=== PATIENT | female | born 1970 | race Two or more races ===

== ENCOUNTER 2019-02-07 10:14 | Emergency (ER) | payer OTHER ==
[~2019-02-07] VITALS: Ht 175.3 cm; Wt 88.5 kg
[2019-02-07] MEDS ORDERED: SINGULAIR10 MG (10:38)
== END 2019-02-07 15:35 | disposition home or self-care (01) ==
LOC: ER 10:14
DX: K52.9 Noninfective gastroenteritis and colitis, unspecified (principal); K64.4 Residual hemorrhoidal skin tags

== ENCOUNTER → 2019-02-25 | Day surgery (SDC) | payer OTHER ==
[~2019-02-25] MED LIST: FLONASE16 GM; SINGULAIR10 MG
== END | disposition home or self-care (01) ==
LOC: CIR.AMB 06:45
DX: K64.8 Other hemorrhoids (principal); K64.4 Residual hemorrhoidal skin tags

== ENCOUNTER 2022-02-15 13:37 | Emergency (ER) | payer OTHER ==
[~2022-02-15] VITALS: Ht 175.3 cm; Wt 88.5 kg
== END 2022-02-15 17:50 | disposition home or self-care (01) ==
LOC: ER 13:37
DX: F41.9 Anxiety disorder, unspecified (principal); R07.9 Chest pain, unspecified

== ENCOUNTER 2025-01-19 10:00 | Emergency (ER) | payer OTHER ==
[~2025-01-19] VITALS: Ht 175.3 cm; Wt 87.1 kg
[2025-01-19] MEDS ORDERED: FAMOTIDINE/PF 20 MG in 0.9 % SODIUM CHLORIDE 8 ML IV PUSH STA (10:39)
[2025-01-19] MEDS ORDERED: ASPIRIN 325 MG TABLET PO ONE (10:45)
[2025-01-19] MEDS ORDERED: NITROGLYCERIN 0.4 MG TAB.SUBL SL SCH (10:45)
[2025-01-19] MEDS ORDERED: 0.9 % SODIUM CHLORIDE 1,000 ML IV SCH (10:45)
[2025-01-19] MEDS ORDERED: TICAGRELOR 90 MG TABLET PO ONE (10:45)
[2025-01-19] MEDS ORDERED: ASPIRIN 325 MG TABLET.EC PO ONE (10:46)
[2025-01-19] MEDS ORDERED: FAMOTIDINE/PF 20 MG/2 ML VIAL ONE (10:46)
[2025-01-19 10:58] LABS: BASO % 0.7 % (0.1-1.2); EOS # 0.18 (0.04-0.54); HEMATOCRIT 46.2 % (40.1-51.0); HEMOGLOBIN 15.7 g/dL (13.7-17.5); LYMPH # 1.83 (1.18-3.74); LYMPH % 20.7 % (19.3-53.1); MEAN CORPUSCULAR HEMOGLOBIN 27.1 pg (25.6-32.2); MONO # 0.92 (0.24-0.82); MONO % 10.4 % (4.7-12.5); NEUT # 5.82 (1.56-6.13); PLATELET COUNT 238 K/uL (163-369); RED BLOOD COUNT 5.79 M/uL (4.63-6.08); RED CELL DISTRIBUTION WIDTH 13.2 % (11.6-14.4)
[2025-01-19 11:22] LABS: INR 1.01; PARTIAL THROMBOPLASTIN TIME 26.5 SECONDS (22.0-34.0)
[2025-01-19] MEDS ORDERED: KETOROLAC TROMETHAMINE 30 MG VIAL ONE (11:25)
[2025-01-19 11:27] LABS: ALBUMIN 3.8 gm/dL (3.4-5.0); BILIRUBIN TOTAL 0.98 mg/dL (0.3-1.2); CALCIUM 9.1 mg/dL (8.5-10.1); CREATININE SERUM 1.07 mg/dL (0.70-1.30); GFR 72.57; GLOBULINA 3.4 G/DL (2.4-3.5); POTASSIUM 4.28 mEq/L (3.5-5.1); TOTAL PROTEIN 7.2 gm/dL (6.4-8.2)
[2025-01-19] MEDS ORDERED: KETOROLAC TROMETHAMINE 30 MG VIAL IV SCH (12:00)
[2025-01-19] MEDS ORDERED: NORFLEX100MG PO (12:04)
[2025-01-19] MEDS ORDERED: DICLOFENAC SODI75 MG PO (12:04)
== END 2025-01-19 13:13 | disposition home or self-care (01) ==
LOC: ER 10:00
PROVIDERS: General Practice
DX: R07.89 Other chest pain (principal); Z88.8 Allergy status to other drugs, medicaments and biological substances